=== PATIENT | male | born 1980 | race Hispanic/Latino ===

== ENCOUNTER 2018-07-21 07:00 | Emergency (ER) | payer SELFPAY ==
[2018-07-21] MEDS ORDERED: Fluorescein Opthalmic Strip ONE (07:59)
[2018-07-21] MEDS ORDERED: Proparacaine 0.5% Opth 15 ML BOT ONE (07:59)
[2018-07-21] MEDS ORDERED: Erythromycin Base 0.5% Ophth Oint 3.5 gm Tube ONE (08:39)
== END 2018-07-21 08:44 | disposition home or self-care (01) ==
LOC: ERS 07:00
DX: T15.01XA Foreign body in cornea, right eye, initial encounter (principal); W45.8XXA Other foreign body or object entering through skin, initial encounter
CPT/HCPCS: 65222